=== PATIENT | male | born 1955 | race Caucasian/White ===

== ENCOUNTER 2016-12-31 10:00 | Observation (INO) | payer OTHER ==
[2016-12-31] MEDS ORDERED: Morphine INJ* 4 MG/ML 1 ML CARPUJECT IV ONE (11:32)
[2016-12-31] MEDS ORDERED: Ondansetron INJ* 2 MG/ML VIAL IV ONE (11:32)
[2016-12-31 11:40] LABS: Hematocrit 38 % (42-52); Hemoglobin 13.3 g/dl (14.0-18.0); Mean Corpuscular HGB Conc 35 g/dl (31-36); Mean Corpuscular Hemoglobin 31 pg (27-31); Mean Corpuscular Volume 89 fL (80-94); Mean Platelet Volume 10 um3 (7.4-10.4); Red Blood Count 4.26 10^6/ul (4.0-5.4); Red Cell Distribution Width 13 % (10.5-15); White Blood Count 9.3 10^3/ul (3.5-10.8)
[2016-12-31 11:53] LABS: Albumin 3.9 g/dL (3.2-5.2); BUN/Creatinine Ratio 16.2 (8-20); Calcium 8.9 mg/dL (8.6-10.3); EGFR African American 71.9 (>60); EGFR Non-African American 55.9 (>60); Globulin 3.2 g/dL (2-4); Potassium 3.4 mmol/L (3.5-5.0); Total Bilirubin 1.2 mg/dL (0.2-1.0); Total Protein 7.1 g/dL (6.4-8.9)
[2016-12-31 11:55] LABS: Troponin I 0.01 ng/mL (<0.04)
--- NOTE | 2016-12-31 13:24 | RAD ---
HISTORY: Chest pain COMPARISONS: None VIEWS: 1: frontal portable view of the chest at 1:09 PM FINDINGS: LINES AND TUBES: None. CARDIOMEDIASTINAL SILHOUETTE: The cardiomediastinal silhouette is normal for portable technique. PLEURA: The costophrenic angles are sharp. No pleural abnormalities are noted. LUNG PARENCHYMA: The lungs are clear. ABDOMEN: The upper abdomen is clear. There is no subphrenic gas. BONES AND SOFT TISSUES: No bone or soft tissue abnormalities are noted. IMPRESSION: NO ACTIVE CARDIOPULMONARY DISEASE.
[2016-12-31] MEDS ORDERED: Dextrose 50% Syringe 50 ML* 25 GM/50 ML SYRINGE IV PUSH PRN (15:06)
[2016-12-31] MEDS ORDERED: Insulin GLARGINE(*) 1 UNITS UNIT SUBCUT SCH ×2 (16:00→21:00)
[2016-12-31] MEDS: Insulin LISPRO* 1 UNITS UNIT SUBCUT SCH (17:48)
[2016-12-31] MEDS: CMCS: Pantoprazole TAB (NF) 40 MG TAB PO SCH (17:53)
--- NOTE | 2016-12-31 18:02 | HP ---
CC: [facility] * HISTORY AND PHYSICAL: DATE OF ADMISSION: 12/31/16 PRIMARY CARE PROVIDER: Provider from [facility] in [facility]. CHIEF COMPLAINT: Chest pain. HISTORY OF PRESENT ILLNESS: Michael Dallas is a 61-year-old male with history of obesity, diabetes, hypertension, and heart disease, although the patient stated that he did have cardiac catheterization several years ago and never received a stent or angioplasty. The patient presents today after he was experiencing chest pain when he was lying in bed and doing puzzle. He states that he has not eaten all day yet. He describes the pain as localized in his left breast and radiating to the left arm with left-sided fingers tingling. He denies any shortness of breath. The chest pain resolved after, as he mentioned, several hours. He had a similar chest pain 2 years ago when he went to a hospital in [place]. At that point, he had a stress test that was apparently unremarkable and the patient was sent back home. The patient is going to be placed on observation with the diagnosis of chest pain to rule out angina. PAST MEDICAL HISTORY: 1. History of "alcoholic psychosis" from his records from [facility]. 2. History of depression. 3. History of coronary artery disease. The patient had cardiac catheterization in [place] several years ago. He does not know the outcome apart from that he stated that he did not receive any stents and he did not have any angioplasty. 4. History of BPH. 5. History of hypertension. 6. Dyslipidemia. 7. History of cholecystectomy. 8. History of appendectomy. 9. Cataract surgery bilaterally. 10. History of diabetes, insulin dependent. 11. Chronic kidney disease, stage 3, with baseline creatinine of 1.2. MEDICATIONS: Include: 1. Regular insulin sliding scale. 2. Insulin Lantus 50 units in the morning and 40 at night. 3. Lidex 0.05% one application b.i.d. to affected areas of the skin. 4. Ibuprofen 800 mg b.i.d. 5. Furosemide 20 mg daily. 6. Norvasc 10 mg daily. 7. Hydrochlorothiazide 25 mg daily. 8. Vitamin D 3000 units daily. 9. Acetaminophen on a p.r.n. basis. 10. Flomax 0.4 mg at bedtime. 11. Plavix 75 mg daily. 12. Lipitor 20 mg at bedtime. 13. Ranitidine 150 mg b.i.d. 14. Omeprazole 20 mg with meals b.i.d. 15. Metoprolol tartrate 12.5 mg b.i.d. 16. Lisinopril 20 mg b.i.d. ALLERGIES: No known drug allergies. FAMILY HISTORY: Positive for mother who of unknown cause at the age of 62. Father committed suicide. SOCIAL HISTORY: The patient has history of smoking "not that much" 8 to 9 years ago. The patient was not able to specify further quantity and duration of his smoking. He also stated that he drank alcohol occasionally until 8 or 9 years ago when he stopped. He denies any drug use. He is currently a [facility]. He is . REVIEW OF SYSTEMS: Please see history of present illness. The patient stated that he had been feeling his usual self. He denies any problems with exercise intolerance. He is ambulating without any need of support. He stated that ever since his gallbladder surgery, he has frequent loose bowel movements. All the remaining 14 systems were reviewed with the patient and were otherwise negative. PHYSICAL EXAMINATION GENERAL: The patient is a pleasant 61-year-old male with a BMI of 39.4. The patient is in no acute distress. Alert, awake, and oriented x3. VITAL SIGNS: Blood pressure 137/66, heart rate 56 and regular, respiratory rate 18, oxygen saturation % on room air, temperature 98.5. HEENT: Head is atraumatic, normocephalic. Eyes: Pupils are equal and reactive to light and accommodation. Oropharynx clear. Mucosa moist. NECK: Supple. No JVD. No bruits bilaterally. RESPIRATORY: Clear to auscultation bilaterally. CARDIOVASCULAR: Regular rate and rhythm, no murmur. ABDOMEN: Soft, nontender. Bowel sounds present in all 4 quadrants. Very protuberant and obese. EXTREMITIES: There is no edema. Pulses +2 bilaterally. No clubbing or cyanosis. NEURO: Speech clear. Cranial nerves II through XII grossly intact. Motor strength is 5/5 bilaterally. SKIN: On evaluation of the skin, no ecchymotic areas or rashes noted. DIAGNOSTIC STUDIES/LAB DATA: White blood cell count of 9.3, hemoglobin of 13.3 , hematocrit of 38, and platelets of 162. INR was 0.9, PTT of 28, D-dimer below 200. Sodium 139, potassium 3.4, chloride 102, carbon dioxide 29, BUN was 21, creatinine 1.3. Liver function tests were unremarkable apart from slight elevation of total bilirubin of 1.2. Troponin of 0.01. Brain natriuretic peptide was 23. The patient's EKG shows sinus bradycardia with heart rate of 53 beats per minute with no ST changes. Portable chest x-ray read by the radiologist, impression: "No active cardiopulmonary disease." ASSESSMENT AND PLAN: 1. In regards to the patient's chest pain, the patient apparently has history of heart disease, although he could not give me any positive history apart from that he did have cardiac catheterization and negative cardiac stress test 2 years ago. He is going to be placed on quality assurance monitor final for observation with serial troponins. Cardiac stress test is going to be obtained in the morning. 2. In regards to the patient's dyslipidemia, his statin is going to be continued and fasting lipid profile is going to be obtained in the morning. 3. For the patient's diabetes, the patient is going to continue the insulin sliding scale and lowered dose of Lantus when in the hospital. 4. The patient's chronic kidney disease, stage 3, due to diabetes. His creatinine is close to baseline. 5. For DVT prophylaxis, the patient is going to be placed on heparin subcutaneously. 6. The patient's code status is full. TIME SPENT: Approximately 62 minutes was spent on admission of this patient, more than half that time was spent [id number] with the patient during the interview and physical exam. [id number]/[facility] #: [id number] [place]
[2016-12-31] MEDS: Acetaminophen TAB* 325 MG PO PRN (18:09)
[2016-12-31] MEDS ORDERED: Metoprolol Tartrate TAB* 25 MG PO SCH (21:00)
[2016-12-31] MEDS: Atorvastatin* 20 MG TAB PO SCH (22:34)
[2016-12-31] MEDS: Lisinopril TAB* 10 MG PO SCH (22:34)
[2016-12-31] MEDS: Tamsulosin CAP* 0.4 MG PO SCH (22:35)
[2016-12-31] MEDS: Heparin VIAL(*) 5000 UNITS/ML VIAL (FIVE THOUSAND) SUBCUT SCH (22:36)
[2017-01-01] MEDS: Acetaminophen TAB* 325 MG PO PRN (04:01)
[2017-01-01] MEDS: Heparin VIAL(*) 5000 UNITS/ML VIAL (FIVE THOUSAND) SUBCUT SCH ×3 (05:15→21:31)
[2017-01-01 06:06] LABS: HDL Cholesterol 22.9 mg/dL
[2017-01-01] MEDS ORDERED: LORazepam TAB(*) 0.5 MG PO ONE (07:24)
[2017-01-01] MEDS: Insulin LISPRO* 1 UNITS UNIT SUBCUT SCH ×4 (07:49→22:28)
[2017-01-01] MEDS: Hydrochlorothiazide TAB* 25 MG PO SCH (11:11)
[2017-01-01] MEDS: Furosemide TAB* 20 MG PO SCH (11:12)
[2017-01-01] MEDS: Clopidogrel TAB* 75 MG PO SCH (11:12)
[2017-01-01] MEDS: Lisinopril TAB* 10 MG PO SCH ×2 (11:12→21:23)
[2017-01-01] MEDS: CMCS: Pantoprazole TAB (NF) 40 MG TAB PO SCH ×2 (11:12→17:39)
[2017-01-01] MEDS: amLODIPine TAB* 5 MG PO SCH (11:13)
[2017-01-01] MEDS: Metoprolol Tartrate TAB* 25 MG PO SCH ×2 (11:13→21:31)
[2017-01-01] MEDS: Cholecalciferol TAB* 1000 UNITS PO SCH (11:18)
--- NOTE | 2017-01-01 11:53 | PN ---
Subjective Date of Service: 01/01/17 Interval History: No more chest pain here. No new c/o. Objective Active Medications: Acetaminophen (Tylenol Tab*) 650 mg PO Q4H PRN PRN Reason: FEVER/PAIN Last Admin: 01/01/17 04:01 Dose: 650 mg Amlodipine Besylate (Norvasc Tab*) 10 mg PO DAILY [facility] Last Admin: 01/01/17 11:13 Dose: 10 mg Atorvastatin Calcium (Lipitor*) 20 mg PO BEDTIME [facility] Last Admin: 12/31/16 22:34 Dose: 20 mg Cholecalciferol (Vitamin D Tab*) 3,000 units PO DAILY [facility] Last Admin: 01/01/17 11:18 Dose: 3,000 units Clopidogrel Bisulfate (Plavix Tab*) 75 mg PO DAILY [facility] Last Admin: 01/01/17 11:12 Dose: 75 mg Dextrose (D50w Syringe 50 Ml*) 12.5 gm IV PUSH .FOR FS < 60 - SS PRN PRN Reason: FS < 60 Furosemide (Lasix Tab*) 20 mg PO DAILY [facility] Last Admin: 01/01/17 11:12 Dose: 20 mg Heparin Sodium (Porcine) (Heparin Vial(*)) 5,000 units SUBCUT Q8HR [facility] Last Admin: 01/01/17 05:15 Dose: 5,000 units Hydrochlorothiazide (Hydrodiuril Tab*) 25 mg PO DAILY [facility] Last Admin: 01/01/17 11:11 Dose: 25 mg Insulin Human Lispro (Humalog*) 0 units SUBCUT AC [facility] PRN Reason: Protocol Last Admin: 01/01/17 11:43 Dose: 1 unit Lisinopril (Prinivil Tab*) 20 mg PO BID [facility] Last Admin: 01/01/17 11:12 Dose: 20 mg Metoprolol Tartrate (Lopressor Tab*) 12.5 mg PO BID [facility] Last Admin: 01/01/17 11:13 Dose: 12.5 mg Pantoprazole Sodium (Protonix Tab (Nf)) 40 mg PO BID WITH MEALS [facility] Last Admin: 01/01/17 11:12 Dose: 40 mg Tamsulosin HCl (Flomax Cap*) 0.4 mg PO BEDTIME [facility] Last Admin: 12/31/16 22:35 Dose: 0.4 mg Vital Signs 12/31/16 12/31/16 12/31/16 15:00 15:30 16:00 Temperature Pulse Rate 50 49 49 Respiratory 11 9 9 Rate Blood Pressure 121/64 138/70 131/73 (mmHg) O2 Sat by Pulse 98 97 97 Oximetry 12/31/16 12/31/16 12/31/16 16:15 16:27 18:15 Temperature 98.1 F 97.3 F Pulse Rate 49 51 Respiratory 16 20 20 Rate Blood Pressure 131/43 137/62 (mmHg) O2 Sat by Pulse 99 98 Oximetry 12/31/16 12/31/16 12/31/16 19:00 19:27 21:40 Temperature 97.4 F Pulse Rate 49 54 Respiratory 20 20 Rate Blood Pressure 140/68 143/67 (mmHg) O2 Sat by Pulse 100 Oximetry 12/31/16 01/01/17 01/01/17 23:38 03:38 07:31 Temperature 97.7 F 97.7 F 97.9 F Pulse Rate 54 58 65 Respiratory 20 16 Rate Blood Pressure 145/74 149/70 123/63 (mmHg) O2 Sat by Pulse 96 96 100 Oximetry 01/01/17 01/01/17 07:47 10:47 Temperature Pulse Rate Respiratory 16 16 Rate Blood Pressure (mmHg) O2 Sat by Pulse Oximetry Oxygen Devices in Use Now: None Appearance: Alert, supine in bed. In good spirits. Looks comfortable. Neck: NL Appearance and Movements; NL JVP, No Thyroid Enlargement, Masses Respiratory: Symmetrical Chest Expansion and Respiratory Effort, Clear to Auscultation, Clear to Percussion, - - No chest wall tenderness. Cardiovascular: NL Sounds; No Murmurs; No JVD, RRR, No Edema, - Abdominal: NL Sounds; No Tenderness; No Distention, No Hepatosplenomegaly, - Extremities: No Edema, No Clubbing, Cyanosis, - Skin: No Rash or Ulcers, No Nodules or Sclerosis, - Neurological: Alert and Oriented x 3, NL Sensation Result Diagrams: 12/31/16 11:26 12/31/16 11:26 Assess/Plan/Problems-Billing Assessment: - Patient Problems (1) Chest pain Current Visit: Yes Status: Acute Code(s): R07.9 - CHEST PAIN, UNSPECIFIED SNOMED Code(s): 94175992 Comment: Normal nuclear images part of stress test. ST-T changes at times on ECG portion. Clinically suspect LVH as cause. Rx diltiazem CD 120 mg daily and refer for outpt cardiology fup/consultation.
--- NOTE | 2017-01-01 17:55 | PN ---
Subjective Date of Service: 01/01/17 Interval History: Continuous pain L chest and L arm. Patient not aware of any inciting event. No cough, SOB. Objective Active Medications: Acetaminophen (Tylenol Tab*) 650 mg PO Q4H PRN PRN Reason: FEVER/PAIN Last Admin: 01/01/17 04:01 Dose: 650 mg Amlodipine Besylate (Norvasc Tab*) 10 mg PO DAILY [facility] Last Admin: 01/01/17 11:13 Dose: 10 mg Atorvastatin Calcium (Lipitor*) 20 mg PO BEDTIME [facility] Last Admin: 12/31/16 22:34 Dose: 20 mg Cholecalciferol (Vitamin D Tab*) 3,000 units PO DAILY [facility] Last Admin: 01/01/17 11:18 Dose: 3,000 units Clopidogrel Bisulfate (Plavix Tab*) 75 mg PO DAILY [facility] Last Admin: 01/01/17 11:12 Dose: 75 mg Dextrose (D50w Syringe 50 Ml*) 12.5 gm IV PUSH .FOR FS < 60 - SS PRN PRN Reason: FS < 60 Furosemide (Lasix Tab*) 20 mg PO DAILY [facility] Last Admin: 01/01/17 11:12 Dose: 20 mg Heparin Sodium (Porcine) (Heparin Vial(*)) 5,000 units SUBCUT Q8HR [facility] Last Admin: 01/01/17 14:01 Dose: 5,000 units Hydrochlorothiazide (Hydrodiuril Tab*) 25 mg PO DAILY [facility] Last Admin: 01/01/17 11:11 Dose: 25 mg Insulin Human Lispro (Humalog*) 0 units SUBCUT AC [facility] PRN Reason: Protocol Last Admin: 01/01/17 17:38 Dose: 2 unit Lisinopril (Prinivil Tab*) 20 mg PO BID [facility] Last Admin: 01/01/17 11:12 Dose: 20 mg Metoprolol Tartrate (Lopressor Tab*) 12.5 mg PO BID [facility] Last Admin: 01/01/17 11:13 Dose: 12.5 mg Pantoprazole Sodium (Protonix Tab (Nf)) 40 mg PO BID WITH MEALS [facility] Last Admin: 01/01/17 17:39 Dose: 40 mg Tamsulosin HCl (Flomax Cap*) 0.4 mg PO BEDTIME [facility] Last Admin: 12/31/16 22:35 Dose: 0.4 mg Vital Signs 1012/31/16 12/31/16 18:15 19:00 19:27 Temperature 97.4 F Pulse Rate 49 Respiratory 20 20 20 Rate Blood Pressure 140/68 (mmHg) O2 Sat by Pulse 100 Oximetry 12/31/16 12/31/16 01/01/17 21:40 23:38 03:38 Temperature 97.7 F 97.7 F Pulse Rate 54 54 58 Respiratory 20 Rate Blood Pressure 143/67 145/74 149/70 (mmHg) O2 Sat by Pulse 96 96 Oximetry 01/01/17 01/01/17 01/01/17 07:31 07:47 10:47 Temperature 97.9 F Pulse Rate 65 Respiratory 16 16 16 Rate Blood Pressure 123/63 (mmHg) O2 Sat by Pulse 100 Oximetry 01/01/17 01/01/17 11:08 15:41 Temperature 98.0 F 97.5 F Pulse Rate 62 58 Respiratory 16 20 Rate Blood Pressure 112/58 159/57 (mmHg) O2 Sat by Pulse 97 94 Oximetry Oxygen Devices in Use Now: None Appearance: Alert, supine in bed. Neutral affect. Looks comfortable. Eyes: No Scleral Icterus Neck: NL Appearance and Movements; NL JVP, No Thyroid Enlargement, Masses Respiratory: Symmetrical Chest Expansion and Respiratory Effort, Clear to Auscultation, Clear to Percussion, - - Very tender L anterior chest large area, reproduces his pain, winces. Cardiovascular: NL Sounds; No Murmurs; No JVD, RRR, No Edema, - Extremities: No Edema, No Clubbing, Cyanosis, - Skin: No Rash or Ulcers, No Nodules or Sclerosis, - Neurological: Alert and Oriented x 3, NL Sensation Result Diagrams: 12/31/16 11:26 12/31/16 11:26 Assess/Plan/Problems-Billing Assessment: - Patient Problems (1) Chest pain Current Visit: Yes Status: Acute Code(s): R07.9 - CHEST PAIN, UNSPECIFIED SNOMED Code(s): 90375068 Comment: Clinically musculoskeletal pain, not cardiac pain. I will repeat his ECG and do an echo 01/02. Patient could not recall names of hospitals and what test he had in the past. Not clear if he ever had a cardiac cath. (2) Diabetes Current Visit: Yes Status: Acute Code(s): E11.9 - TYPE 2 DIABETES MELLITUS WITHOUT COMPLICATIONS SNOMED Code(s): 67755434 Comment: Re-start glargine insulin at slightly lower doses 01/01 PM. Continue Lispro by SS. (3) HTN (hypertension) Current Visit: Yes Status: Acute Code(s): I10 - ESSENTIAL (PRIMARY) HYPERTENSION SNOMED Code(s): 95522708 Comment: Continue home BP meds. (4) CKD (chronic kidney disease) stage 3, GFR 30-59 ml/min Current Visit: Yes Status: Acute Code(s): N18.3 - CHRONIC KIDNEY DISEASE, STAGE 3 (MODERATE) SNOMED Code(s): 234599678 Comment: Est GFR 55.9 12/31/16. BMP 01/01. (5) Anemia Current Visit: Yes Status: Acute Code(s): D64.9 - ANEMIA, UNSPECIFIED SNOMED Code(s): 809840596 Comment: Likely related to CKD. CBC 01/01.
[2017-01-01] MEDS ORDERED: Insulin GLARGINE(*) 1 UNITS UNIT SUBCUT SCH (18:00)
[2017-01-01] MEDS: Atorvastatin* 20 MG TAB PO SCH (21:31)
[2017-01-01] MEDS: Tamsulosin CAP* 0.4 MG PO SCH (21:31)
[2017-01-01] MEDS ORDERED: Insulin LISPRO* 1 UNITS UNIT SUBCUT SCH (21:47)
[2017-01-02 04:44] LABS: Hematocrit 38 % (42-52); Hemoglobin 13.3 g/dl (14.0-18.0); Mean Corpuscular HGB Conc 35 g/dl (31-36); Mean Corpuscular Hemoglobin 32 pg (27-31); Mean Corpuscular Volume 90 fL (80-94); Mean Platelet Volume 11 um3 (7.4-10.4); Red Blood Count 4.21 10^6/ul (4.0-5.4); Red Cell Distribution Width 14 % (10.5-15); White Blood Count 9.1 10^3/ul (3.5-10.8)
[2017-01-02 04:59] LABS: BUN/Creatinine Ratio 16.4 (8-20); Calcium 8.9 mg/dL (8.6-10.3); EGFR African American 62.9 (>60); EGFR Non-African American 48.9 (>60); Potassium 3.5 mmol/L (3.5-5.0)
[2017-01-02] MEDS: Heparin VIAL(*) 5000 UNITS/ML VIAL (FIVE THOUSAND) SUBCUT SCH (05:54)
[2017-01-02] MEDS ORDERED: Perflutren Lipid Microsphere* 3 ML VIAL ONE (07:51)
[2017-01-02] MEDS ORDERED: Insulin GLARGINE(*) 1 UNITS UNIT SUBCUT SCH (08:00)
[2017-01-02] MEDS: Hydrochlorothiazide TAB* 25 MG PO SCH (08:13)
[2017-01-02] MEDS: Lisinopril TAB* 10 MG PO SCH (08:13)
[2017-01-02] MEDS: Furosemide TAB* 20 MG PO SCH (08:14)
[2017-01-02] MEDS: Cholecalciferol TAB* 1000 UNITS PO SCH (08:14)
[2017-01-02] MEDS: Clopidogrel TAB* 75 MG PO SCH (08:14)
[2017-01-02] MEDS: Insulin LISPRO* 1 UNITS UNIT SUBCUT SCH ×2 (08:14→12:26)
[2017-01-02] MEDS: CMCS: Pantoprazole TAB (NF) 40 MG TAB PO SCH (08:14)
[2017-01-02] MEDS: Metoprolol Tartrate TAB* 25 MG PO SCH (08:14)
[2017-01-02] MEDS: amLODIPine TAB* 5 MG PO SCH (08:14)
--- NOTE | 2017-01-02 08:55 | ECHO ---
Patient: LEONILA PAYTON [id number] [facility] Rec#: [id number] : 1955 Date: 01/02/2017 Age: 61y Height: 175.26 cm / 69.0 in Weight: 102.06 kg / 224.9 lbs Sex: M BSA: 2.17 Room#: 434 Admit Date#: 12/31/2016 Type: Inpatient Referring: Ed Andre MD Reading: Jesus Roach MD Photography Intern: Jessie AriasRD,RDMS Transthoracic Echocardiogram Indication: CP BP: 131/57 HR: 63 Rhythm: NSR Findings History: DM, HTN, HLD, CKD, former smoker Technical Comments: The study is technically limited due to poor acoustic windows. Completed 08 Left Ventricle: The left ventricular chamber size is normal. Mild concentric left ventricular hypertrophy is observed. The estimated ejection fraction is 50-55%. As best as can be assessed. There is no consistent Doppler evidence of clinically significant diastolic dysfunction. Left Atrium: The left atrium is mild to moderately dilated. Right Ventricle: The right ventricular chamber size and systolic function are within normal limits. Right Atrium: The right atrial cavity size is normal. Aortic Valve: The aortic valve is trileaflet. There is no evidence of aortic valve thickening. Systolic excursion of the aortic valve is normal. There is no evidence of aortic regurgitation. There is no evidence of aortic stenosis. Mitral Valve: The mitral valve leaflets do not appear thickened. There is no evidence of mitral regurgitation. There is no evidence of mitral stenosis. Tricuspid Valve: The tricuspid valve leaflets are normal. There is trace tricuspid regurgitation. Unable to estimate the right ventricular systolic pressure. Pulmonic Valve: There is no evidence of pulmonic valve thickening. There is a trace pulmonic regurgitation. Pericardium: There is no significant pericardial effusion. Aorta: The ascending aorta is not well visualized. There is no dilatation of the aortic arch. The aortic root is normal in size. Pulmonary Artery: The main pulmonary artery is not well visualized. Venous: The inferior vena cava is not visualized. Contrast: Definity was used to optimize study. A total of 4 m was used Conclusions The study is technically limited due to poor acoustic windows. Contrast used to help assess but poor imaging as weel. Limited reliable information Mild concentric left ventricular hypertrophy is observed. Probable normal LV systolic function. The estimated ejection fraction is 50-55%. As best as can be assessed. No obvious significant valvular disease: There is no evidence of aortic regurgitation. There is no evidence of aortic stenosis. There is no evidence of mitral regurgitation. There is no evidence of mitral stenosis. There is trace tricuspid regurgitation. No reports of prior studies offered for comparison. Measurements Name Value Normal Range RVIDd (AP) 2D 2.6 cm (0.9 - 2.6) RVDdMajor (2D) 3.8 cm (2.2 - 4.4) RAd ISD 4CH 4.7 cm (3.4 - 4.9) RA (A4C)W 4.5 cm (2.9 - 4.6) IVSd (2D) 1.2 cm (0.6 - 1) LVPWd (2D) 1.4 cm (0.6 - 1) LVIDd (2D) 4.6 cm (3.6 - 5.4) LVIDs (2D) 3.3 cm - LV FS (2D) 29 % (25 - 45) Aortic Annulus 2.3 cm (1.4 - 2.6) Ao root diameter (2D) 3.8 cm (2.1 - 3.5) Aortic arch 3.4 cm (1.8 - 3.4) LA dimension (AP) 2D 3.7 cm (2.3 - 3.8) LAd ISD 4CH 6.8 cm (2.9 - 5.3) LA ISD 4CH W 4.2 cm (2.5 - 4.5) Name Value Normal Range MV E-wave Vmax 0.6 m/sec - MV deceleration time 226 msec - MV A-wave Vmax 0.8 m/sec - MV E:A ratio 0.8 ratio - LV lateral e' Vmax 0.04 m/sec - LV E:e' lateral ratio 15 ratio - Name Value Normal Range AV Vmax 1.5 m/sec - AV VTI 31.7 cm - AV peak gradient 9 mmHg - AV mean gradient 4.6 mmHg - LVOT Vmax 1.2 m/sec - LVOT VTI 29 cm - LVOT peak gradient 6 mmHg - LVOT mean gradient 3.4 mmHg - Name Value Normal Range RAP 8 mmHg - Name Value Normal Range PV Vmax 0.8 m/sec - PV peak gradient 2.6 mmHg -
[2017-01-02 11:29] VITALS: BP 133/62
--- NOTE | 2017-01-02 21:56 | DS ---
DISCHARGE SUMMARY: DATE OF ADMISSION: 12/31/16 DATE OF DISCHARGE: 01/02/17 HOSPITAL COURSE: This 61-year-old man presented with chest pain. He has been an inmate [facility] possibly for 10 years according to his account. His previous medical history was uncertain, obtained mainly from the patient. It is not clear if he did or did not have cardiac catheterization in the past. I think he at least had a stress test in the past. He said he never had a stent or angioplasty. This present episode of pain occurred at rest and localized to the left anterior chest in the pectoral area. There was some left-sided tingling of the fingers. No other associated symptoms. He was admitted to the telemetry unit. The pain persisted for at least 24 hours. It seemed to be pretty much going on the third hospital day when he was discharged. He went an echocardiogram, which was technically poor due to poor acoustic windows. Ejection fraction was estimated to be about 50% to 55%. No significant abnormalities were detected. EKG remained normal when checked several times. His troponin was checked 3 times and was normal all 3 occasions. By clinical impression is he has chest wall pain, he remained quite tender in the left pectoral region every day. He even said when they did the echocardiogram that hurt his chest wall. FINAL DIAGNOSES: 1. Chest wall pain. 2. Diabetes. 3. Hypertension. 4. Chronic kidney disease. 5. Anemia. DISCHARGE MEDICATIONS: 1. Regular insulin 3 times a day with meals by sliding scale. 2. Glargine insulin 50 units in the morning, 40 units in the evening. 3. Fluocinonide 0.05% cream b.i.d. to affected areas. 4. Ibuprofen 800 mg b.i.d. p.r.n. 5. Furosemide 20 mg daily. 6. Amlodipine 10 mg daily. 7. Hydrochlorothiazide 25 mg daily. 8. Vitamin D3 1000 units daily. 9. Acetaminophen 325 mg q.i.d. p.r.n. 10. Tamsulosin 0.4 mg h.s. 11. Clopidogrel 75 mg daily. 12. Atorvastatin 20 mg h.s. 13. Ranitidine 150 mg before lunch and at bedtime. 14. Omeprazole 20 mg b.i.d. 15. Metoprolol 12.5 mg b.i.d. 16. Lisinopril 20 mg b.i.d. [id number]/[facility] #: [id number] [facility]
--- NOTE | 2017-01-03 12:25 | ED ---
Ashley Sherman Thomas, scribed for Gilberto Bey MD on 12/31/16 at 1133 . HPI Chest Pain - HPI Summary HPI Summary: The patient is a 61 y/o M with a Hx of LA who c/o CP that began yesterday at 19: 00. The CP is located in his mid L anterior chest and lower R anterior chest. The pain is rated 2/10 and it is constant. The pain is aggravated with movement. He was given ASA and NTG prior to arrival, which did not relieve pain. He has numbness that radiates to his right arm and left shoulder. He additionally c/o a cough. He has a Hx of Type II DM and reports that his blood glucose measurements have been erratic recently and he had a reading in the 400s two weeks ago. He says that he has been gradually gaining weight in the last few months. His current symptoms are similar to his prior LA. He is an inmate at [facility] since February 2016. No EKGs were obtained at the long term facility. His blood glucose measured at the facility was 121. A saline lock was started prior to arrival. He is on Plavix and Lopressor. PMHx: DM, LA. PSHx: coronary catheterization. SHx: no smoking. Prior to yesterday, he has experienced occasional episodes of CP in the last few months. - History of Current Complaint Chief Complaint: EDChestPainROMI Time Seen by Provider: 12/31/16 10:38 Hx Obtained From: Patient Onset/Duration: Started Hours Ago - pain with onset yesterday at 19:00, Still Present Timing: Constant Pain Intensity: 2 Pain Scale Used: 0-10 Numeric Chest Pain Location: Discrete at: - mid L anterior chest and lower R anterior chest Chest Pain Radiates: Yes Chest Pain Radiates To:: Shoulder - L, Arm - R Aggravating Factor(s): Nothing Alleviating Factor(s): Nothing Associated Signs and Symptoms: Positive: Chest Pain, Cough, Other: - Numbness in R arm and L shoulder, erratic blood glucose measurements in the last two weeks Related History: Similar Episode/Dx as: - prior LA - Allergy/Home Medications Allergies/Adverse Reactions: Allergies Allergy/AdvReac Type Severity Reaction Status Date / Time No Known Allergies Allergy Verified 12/31/16 11:21 Home Medications: Home Medications Acetaminophen TAB* [Tylenol TAB*] 325 mg PO QID PRN 12/31/16 [History Confirmed 12/31/16] Atorvastatin* [Lipitor*] 20 mg PO BEDTIME 12/31/16 [History Confirmed 12/31/16] Cholecalciferol [Vitamin D] 3,000 unit PO DAILY 12/31/16 [History Confirmed 01/07] Clopidogrel TAB* [Plavix TAB*] 75 mg PO DAILY 12/31/16 [History Confirmed ] Fluocinonide 0.05% CM (NF) [Lidex 0.05% CREAM (NF)] 1 applic TOPICAL BID [History Confirmed 12/31/16] Furosemide TAB* [Lasix TAB*] 20 mg PO DAILY 12/31/16 [History Confirmed 12/31/16 ] Hydrochlorothiazide TAB* [Hydrodiuril TAB*] 25 mg PO DAILY 12/31/16 [History Confirmed 12/31/16] Ibuprofen TAB* [Motrin TAB* 800 MG] 800 mg PO BID 12/31/16 [History Confirmed ] Insulin GLARGINE(*) [Lantus(*)] 40 units SUBCUT QPM 12/31/16 [History Confirmed 12/31/16] Insulin GLARGINE(*) [Lantus(*)] 50 units SUBCUT QAM 12/31/16 [History Confirmed 12/31/16] Insulin REGULAR(*) 0 - 18 units SUBCUT TID WITH MEALS 12/31/16 [History Confirmed 12/31/16] Lisinopril TAB* [Prinivil TAB*] 20 mg PO BID 12/31/16 [History Confirmed ] Metoprolol Tartrate TAB* [Lopressor TAB*] 12.5 mg PO BID 12/31/16 [History Confirmed 12/31/16] Omeprazole CAP* [Prilosec CAP* 20 MG] 20 mg PO BID WITH MEALS 12/31/16 [History Confirmed 12/31/16] Ranitidine TAB (NF) [Zantac TAB (NF)] 150 mg PO .BEFORE LUNCH + BED 12/31/16 [ History Confirmed 12/31/16] Tamsulosin CAP* [Flomax CAP*] 0.4 mg PO BEDTIME 12/31/16 [History Confirmed 01/07] amLODIPine TAB* [Norvasc 5 mg TAB*] 10 mg PO DAILY 12/31/16 [History Confirmed 12/31/16] PMH/Surg Hx/FS Hx/Imm Hx Previously Healthy: No Endocrine/Hematology History: Reports: Hx Diabetes - Type II Cardiovascular History: Reports: Hx Myocardial Infarction - Surgical History Surgery Procedure, Year, and Place: Coronary catheterizations Infectious Disease History: No Infectious Disease History: Denies: Traveled Outside the [place] in Last 30 Days - Family History Known Family History: Positive: Cardiac Disease - Social History Alcohol Use: None Substance Use Type: Reports: None Smoking Status (MU): Never Smoked Tobacco Review of Systems Negative: Fever, Chills Negative: Erythema - eyes Negative: Sore Throat Positive: Chest Pain - onset yesterday at 19:00, aggravated with movement Positive: Cough. Negative: Shortness Of Breath Negative: Abdominal Pain, Vomiting, Nausea Negative: dysuria, hematuria Negative: Myalgia, Edema - legs Negative: Rash Neurological: Other - NEGATIVE: dizziness Positive: Numbness - numbness in R arm and L shoulder All Other Systems Reviewed And Are Negative: Yes Physical Exam - Summary Physical Exam Summary: Constitutional: Well-developed, Well-nourished, Alert. (-) Distressed Skin: Warm, Dry. There is some eczema and dried skin on the left lateral calf and right elbow. HENT: Normocephalic; Atraumatic Eyes: Conjunctiva normal Neck: Musculoskeletal ROM normal neck. (-) JVD, (-) Stridor, (-) Tracheal deviation Cardio: Rhythm regular, rate normal, Heart sounds normal; Intact distal pulses; The pedal pulses are 2+ and symmetric. Radial pulses are 2+ and symmetric. (-) Murmur Pulmonary/Chest wall: Effort normal. (-) Respiratory distress, (-) Wheezes, (-) Rales Abd: Soft, (-) Tenderness, (-) Distension, (-) Guarding, (-) Rebound Musculoskeletal: (-) Edema Lymph: (-) Cervical adenopathy Neuro: Alert, Oriented x3 Psych: Mood and affect Normal Triage Information Reviewed: Yes Vital Signs On Initial Exam: Initial Vitals Temp Pulse Resp BP Pulse Ox 98.5 F 54 20 145/81 99 12/31/16 10:22 12/31/16 10:22 12/31/16 10:22 12/31/16 10:22 12/31/16 10:22 Vital Signs Reviewed: Yes Diagnostics - Vital Signs Vital Signs Temp Pulse Resp BP Pulse Ox 12/31/16 10:57 52 12/31/16 10:30 53 11 157/75 100 12/31/16 10:22 98.5 F 54 8 145/81 99 - Laboratory Result Diagrams: 12/31/16 11:26 12/31/16 11:26 Lab Statement: Any lab studies that have been ordered have been reviewed, and results considered in the medical decision making process. - Radiology CXR Xray Interpretation: No Acute Changes - No active cardiopulmonary disease. ED physician has reviewed this report and agrees. Radiology Interpretation Completed By: Radiologist - EKG 10:53 Cardiac Rate: NL - 53 BPM EKG Rhythm: Sinus Bradycardia EKG Interpretation: No STEMI Chest Pain Course/Dx - Course Assessment/Plan: The patient is a 61 y/o M with a Hx of LA who c/o CP that began yesterday at 19:00. The CP is located in his mid L anterior chest and lower R anterior chest. The pain is rated 2/10 and it is constant. The pain is aggravated with movement. He was given ASA and NTG prior to arrival, which did not relieve pain. He has numbness that radiates to his right arm and left shoulder. He additionally c/o a cough. He has a Hx of Type II DM and reports that his blood glucose measurements have been erratic recently and he had a reading in the 400s two weeks ago. He says that he has been gradually gaining weight in the last few months. His current symptoms are similar to his prior LA. He is an inmate at [facility] since February 2016. No EKGs were obtained at the long term facility. His blood glucose measured at the facility was 121. A saline lock was started prior to arrival. He is on Plavix and Lopressor. PMHx: DM, LA. PSHx: coronary catheterization. SHx: no smoking. Prior to yesterday, he has experienced occasional episodes of CP in the last few months. The patient had a normal exam. In the ED course the patient was given morphine and Zofran. EKG shows no STEMI and CXR is negative for active disease. Bloodwork was obtained and it shows troponin #1 0.01 and troponin #2 0.01. The patient is diagnosed with chest pain, unspecified. I discussed the case with Dr. Banks, hospitalist, who will admit the patient to [facility]. - Diagnoses Provider Diagnoses: Chest pain, unspecified - Provider Notifications Discussed Care Of Patient With: Betty Banks Time Discussed With Above Provider: 13:10 Instructed by Provider To: Other - I discussed care with Dr. Banks, hospitalist, who will admit the patient to [facility]. Discharge - Discharge Plan Condition: Fair Disposition: ADMITTED TO [facility] documentation as recorded by the Ashley marcial Thomas accurately reflects the service I personally performed and the decisions made by me, Gilberto Bey MD.
== END 2017-01-02 13:25 ==
LOC: ED 10:00 → MEDTELE 14:59 → EEVIPCON 14:59
PROVIDERS: ADMIT Internal Medicine; ATTEND Internal Medicine
DX: R07.89 Other chest pain (principal); E11.9 Type 2 diabetes mellitus without complications; Z79.4 Long term (current) use of insulin; I10 Essential (primary) hypertension; D64.9 Anemia, unspecified; I25.10 Atherosclerotic heart disease of native coronary artery without angina pectoris; I51.7 Cardiomegaly; Z79.899 Other long term (current) drug therapy; N18.3 Chronic kidney disease, stage 3 (moderate); R20.0 Anesthesia of skin; I25.2 Old myocardial infarction; E78.5 Hyperlipidemia, unspecified; R05 Cough
CPT/HCPCS: 36415; 71010; 80048; 80053; 80061; 83880; 84484; 85025; 85027; 85379; 85610; 85730; 93005; 93306; 96374; 96375; 99284; A9270-GY; C8929; G0378; J1644; J2270; J2405